=== PATIENT | female | born 1955 | race Caucasian/White ===

== ENCOUNTER 2018-10-28 05:21 | Day surgery (SDC) | payer BC ==
[2018-10-28] MEDS ORDERED: fentaNYL 100 MCG/2 ML SDV IV ONE ×3 (05:22→06:39)
[2018-10-28] MEDS ORDERED: Midazolam 1 MG/ML 2 ML SDV IV ONE ×5 (05:22→06:47)
[2018-10-28] MEDS ORDERED: Dextrose 5%-0.45% NaCl 1,000 ML IV SCH (06:00)
[2018-10-28] MEDS ORDERED: Midazolam 1 MG/ML 2 ML SDV ONE (06:16)
[2018-10-28] MEDS ORDERED: fentaNYL 100 MCG/2 ML SDV ONE (06:17)
--- NOTE | 2018-10-28 11:17 | OR ---
DATE: 10/28/2018 PROCEDURE PERFORMED: Total colonoscopy. INSTRUMENT USED: PCF-H190DL Olympus video colonoscope. PREMEDICATIONS: Fentanyl 100 mcg intravenous, Versed 3 mg intravenous. Nasal O2 cannula. The procedure was done under pulse oximetry, BP recording, and cardiac catheterization technologist. INDICATION: Screening colonoscopic examination is done for detection of any polypoid lesions and removal, endoscopic hemostasis therapy if needed. DESCRIPTION OF PROCEDURE: Initial rectal exam was unremarkable. Rigid anoscopy was normal. The colonoscope was passed with ease up to the ileocecal area. Photographs were taken of the normal-appearing cecum, identified by double- bulged ileocecal folds. No bleeding was noted from any of the visualized areas at the commencement of the examination. Bowel preparation was found to be adequate, Cambria scale 3. No stricture. No vascular ectasia. No large isolated ulcerations seen. No evidence of diffuse inflammatory bowel disease in the form of friability, contact bleeding, or ulcerations. In the proximal ascending colon, a 3-mm sized benign-appearing polyp was noted, photograph was taken, cold snare polypectomy was done, the tissue was retrieved and sent for histopathology. Probing the proximal sides of folds and flexures using adequate distention and clearing up the stool material, withdrawal of the scope was made, cecum to rectum, time over 6 minutes. No bleeding was noted from any of the visualized areas at the completion of examination. IMPRESSION: Diminutive ascending colon polyp. The patient tolerated the procedure well. [facility] /[id number]
== END 2018-10-28 09:03 | disposition home or self-care (01) ==
LOC: DL.ENDO 05:21
PROVIDERS: ATTEND Internal Medicine Gastroenterology
DX: Z12.11 Encounter for screening for malignant neoplasm of colon (principal); D12.2 Benign neoplasm of ascending colon; I10 Essential (primary) hypertension; E78.00 Pure hypercholesterolemia, unspecified; E66.09 Other obesity due to excess calories; Z68.35 Body mass index [BMI] 35.0-35.9, adult; Z88.8 Allergy status to other drugs, medicaments and biological substances; Z80.0 Family history of malignant neoplasm of digestive organs
CPT/HCPCS: 45385; J2250; J3010; J7042

== ENCOUNTER 2019-03-17 21:40 | Emergency (ER) | payer BC ==
[2019-03-17 22:27] LABS: ANION GAP 14.9
--- NOTE | 2019-03-17 22:27 | EDM.PDOC ---
ED HPI GENERAL MEDICAL PROBLEM - General Chief Complaint: General Stated Complaint: NAUSEA/SWEATING/CHILLS Time Seen by Provider: 03/17/19 22:10 Source of Information: Reports: Patient History Limitations: Reports: No Limitations - History of Present Illness INITIAL COMMENTS - FREE TEXT/NARRATIVE: This 63 yo female patient reports to the ED due to not feeling well. The patient reports she has had nausea, 2 episodes of vomiting and intermittent episodes of heart palpitations today. The patient also reports she has had some increased pain in her right posterior neck. The patient reports she was recently released from [facility] in [place] (discharged on Wednesday). During the visit in [place], the patient reports she was diagnosed with CHF. The reports she has a history of atrial fibrillation (diagnosed within the past month). The patient reports she also feels like her abdomen is bloated since she vomited today. The patient reports she has been taking her regular medications as prescribed. The patient reports she has not taken any Tylenol for her neck pain. Onset: Today Duration: Intermittent Location: Reports: Neck, Chest, Generalized Quality: Reports: Other Severity: Moderate Improves with: Reports: None Worsens with: Reports: None Context: Reports: Other Associated Symptoms: Reports: No Other Symptoms - Related Data Allergies Allergy/AdvReac Type Severity Reaction Status Date / Time oxaprozin [From Daypro] Allergy Cannot Verified 03/17/19 21:45 Remember Home Meds: Home Meds Acetaminophen [Tylenol Arthritis Pain] 650 mg PO Q8H PRN 03/17/19 [History] Acyclovir 200 mg PO 5XDAY 03/17/19 [History] Apixaban [Eliquis] 5 mg PO DAILY 03/17/19 [History] Cefpodoxime [Vantin] 200 mg PO BID 03/17/19 [History] Lisinopril 5 mg PO DAILY 03/17/19 [History] Metoprolol Tartrate 50 mg PO BID 03/17/19 [History] Simvastatin 10 mg PO BEDTIME 03/17/19 [History] Sodium Bicarbonate/Sodium Cit [[place] Heartburn Tab Eff] 1 each PO BID 09/30 [History] Past Medical History HEENT History: Reports: Impaired Vision, Macular Degeneration Cardiovascular History: Reports: Afib, Heart Failure, High Cholesterol, Hypertension, [place] Respiratory History: Reports: None Gastrointestinal History: Reports: None Genitourinary History: Reports: None 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: , Spontaneous Musculoskeletal History: Reports: Fracture, Osteoarthritis Other Musculoskeletal History: RIGHT ankle fx Neurological History: Reports: None Psychiatric History: Reports: None Endocrine/Metabolic History: Reports: Obesity/BMI 30+ Hematologic History: Reports: None Immunologic History: Reports: None Oncologic (Cancer) History: Reports: None Dermatologic History: Reports: None - Infectious Disease History Infectious Disease History: Reports: Mumps - Past Surgical History Head Surgeries/Procedures: Reports: None HEENT Surgical History: Reports: None Cardiovascular Surgical History: Reports: None Respiratory Surgical History: Reports: None GI Surgical History: Reports: Colonoscopy Female Surgical History: Reports: Hysterectomy Endocrine Surgical History: Reports: None Neurological Surgical History: Reports: None Musculoskeletal Surgical History: Reports: Carpal Tunnel, ORIF Other Musculoskeletal Surgeries/Procedures:: CARPAL TUNNEL BILAT. ORIF OF ANKLE W/ HARDWARE Oncologic Surgical History: Reports: None Dermatological Surgical History: Reports: None Social & Family History - Family History Family Medical History: Noncontributory - Tobacco Use Smoking Status *Q: Never Smoker Second Hand Smoke Exposure: No - Caffeine Use Caffeine Use: Reports: None - Recreational Drug Use Recreational Drug Use: No - Living Situation & Occupation Living situation: Reports: , with Spouse ED ROS GENERAL - Review of Systems Review Of Systems: ROS reveals no pertinent complaints other than HPI. ED EXAM, GENERAL - Physical Exam Exam: See Below Exam Limited By: No Limitations General Appearance: Alert, WD/WN, Anxious, Mild Distress, Obese Eye Exam: Bilateral Eye: EOMI, Normal Inspection, PERRL Ears: Normal External Exam, Normal Canal, Hearing Grossly Normal, Normal TMs Nose: Normal Inspection, Normal Mucosa, No Blood Throat/Mouth: Normal Inspection, Normal Lips, Normal Teeth, Normal Gums, Normal Oropharynx, Normal Voice, No Airway Compromise Head: Atraumatic, Normocephalic Neck: Normal Inspection, Supple, Non-Tender, Full Range of Motion Respiratory/Chest: No Respiratory Distress, Lungs Clear, Normal Breath Sounds, No Accessory Muscle Use, Chest Non-Tender Cardiovascular: No Gallop, No JVD, No Murmur, No Rub, Irregularly Irregular GI/Abdominal: Normal Bowel Sounds, Soft, Non-Tender, No Organomegaly, No Distention, No Abnormal Bruit, No Mass, Other (obese) (Female) Exam: Deferred Rectal (Female) Exam: Deferred Back Exam: Normal Inspection, Full Range of Motion, NT Extremities: Normal Range of Motion, Non-Tender, Normal Capillary Refill, Pedal Edema (2+ bilateral lower extremities) Neurological: Alert, Oriented, CN II-XII Intact, Normal Cognition, Normal Gait, Normal Reflexes, No Motor/Sensory Deficits Psychiatric: Anxious Skin Exam: Warm, Dry, Intact, Normal Color, No Rash Lymphatic: No Adenopathy Course - Vital Signs Last Recorded V/S: Last Vital Signs Temp 37.1 C 03/17/19 21:45 Pulse 106 H 03/17/19 21:45 Resp 20 03/17/19 21:45 BP 168/115 H 03/17/19 21:45 Pulse Ox 96 03/17/19 21:45 - Orders/Labs/Meds Orders: Active Orders 24 hr Category Date Time Status EKG Documentation Completion [RC] URGENT Care 03/17/19 21:58 Active CULTURE BLOOD [BC] Stat Lab 03/17/19 22:00 Results UA RFX TITO AND CULT IF INDIC [URIN] Urgent Lab 03/17/19 21:58 Ordered Labs: Laboratory Tests 03/17/19 03/17/19 03/17/19 Range/Units 22:00 22:00 22:00 WBC 8.0 (5.0-10.0) 10^3/uL RBC 3.97 L (4.2-5.4) 10^6/uL Hgb 11.8 L D (12.0-16.0) g/dL Hct 35.9 L (37.0-47.0) % MCV 90.4 (80-100) fL MCH 29.7 (27.0-34.0) pg MCHC 32.9 L (33.0-35.0) g/dL Plt Count 191 (150-450) 10^3/uL Neut % (Auto) 79.4 H (42.2-75.2) % Lymph % (Auto) 12.5 L (20.5-50.1) % [place] % (Auto) 6.9 (2-8) % Eos % (Auto) 1.1 (1.0-3.0) % Baso % (Auto) 0.1 (0.0-1.0) % Sodium (135-145) mmol/L Potassium (3.6-5.0) mmol/L Chloride (101-111) mmol/L Carbon Dioxide (21.0-31.0) mmol/L Anion Gap BUN (7-18) mg/dL Creatinine (0.6-1.3) mg/dL Est Cr Clr Drug Dosing mL/min Estimated GFR (MDRD) BUN/Creatinine Ratio Glucose (74-105) mg/dL Lactic Acid 1.0 (0.5-2.2) mmol/L Calcium (8.4-10.2) mg/dl Total Bilirubin (0.2-1.0) mg/dL AST (10-42) IU/L ALT (10-60) IU/L Alkaline Phosphatase (42-121) IU/L Troponin I (0.00-0.02) ng/ml B-Natriuretic Peptide 979 H (0-100) pg/ml Total Protein (6.7-8.2) g/dl Albumin (3.2-5.5) g/dl Globulin Albumin/Globulin Ratio 03/17/19 03/17/19 Range/Units 22:00 22:00 WBC (5.0-10.0) 10^3/uL RBC (4.2-5.4) 10^6/uL Hgb (12.0-16.0) g/dL Hct (37.0-47.0) % MCV (80-100) fL MCH (27.0-34.0) pg MCHC (33.0-35.0) g/dL Plt Count (150-450) 10^3/uL Neut % (Auto) (42.2-75.2) % Lymph % (Auto) (20.5-50.1) % [place] % (Auto) (2-8) % Eos % (Auto) (1.0-3.0) % Baso % (Auto) (0.0-1.0) % Sodium 140 (135-145) mmol/L Potassium 3.9 (3.6-5.0) mmol/L Chloride 105 (101-111) mmol/L Carbon Dioxide 24.0 (21.0-31.0) mmol/L Anion Gap 14.9 BUN 16 (7-18) mg/dL Creatinine 1.1 (0.6-1.3) mg/dL Est Cr Clr Drug Dosing 49.64 mL/min Estimated GFR (MDRD) 50 BUN/Creatinine Ratio 14.54 Glucose 131 H (74-105) mg/dL Lactic Acid (0.5-2.2) mmol/L Calcium 8.5 (8.4-10.2) mg/dl Total Bilirubin 0.7 (0.2-1.0) mg/dL AST 24 (10-42) IU/L ALT 29 (10-60) IU/L Alkaline Phosphatase 76 (42-121) IU/L Troponin I 0.06 H* (0.00-0.02) ng/ml B-Natriuretic Peptide (0-100) pg/ml Total Protein 6.7 (6.7-8.2) g/dl Albumin 3.4 (3.2-5.5) g/dl Globulin 3.3 Albumin/Globulin Ratio 1.03 Meds: Medications Discontinued Medications Generic Name Dose Route Start Last Admin Trade Name Freq PRN Reason Stop Dose Admin Furosemide 60 mg 03/17/19 23:12 Lasix IVPUSH 03/17/19 23:13 NOW ONE - Radiology Interpretation Free Text/Narrative:: PROCEDURE INFORMATION: Exam: XR Chest, 1 View Exam date and time: 03/17/2019 10:38 PM Clinical history: 63 years old, female; Other: Heart palpatations TECHNIQUE: Imaging protocol: XR of the chest Views: 1 view. COMPARISON: CR Chest 1V Frontal 02/27/2019 12:54 PM FINDINGS: Lungs: There is an somatostatin subpulmonic vasculature some increased bronchovascular markings present, findings that could represent mild pulmonary edema. Pleural space: Unremarkable. No pleural effusion. No pneumothorax. Heart/Mediastinum: Unremarkable. No cardiomegaly. Bones/joints: Unremarkable. IMPRESSION: Mildly increased bronchovascular markings and indistinctness of the bony vasculature could represent mild pulmonary edema. Thank you for allowing us to participate in the care of your patient. Dictated and Authenticated by: Dm Darnell MD - Re-Assessments/Exams Free Text/Narrative Re-Assessment/Exam: 03/17/19 23:[address]. Liz advised to give the patient an IV dose of lasix (60 mg) and discharge the patient with a script for lasix (40 mg) to take 1 by mouth daily with a follow-up on Wednesday as scheduled. Departure - Departure Time of Disposition: 23:15 Disposition: Home, Self-Care 01 Condition: Fair Clinical Impression: CHF (congestive heart failure) Qualifiers: Heart failure type: unspecified Heart failure chronicity: acute on chronic Qualified Code(s): I50.9 - Heart failure, unspecified - Discharge Information *PRESCRIPTION DRUG MONITORING PROGRAM REVIEWED*: Not Applicable *COPY OF PRESCRIPTION DRUG MONITORING REPORT IN PATIENT AMY: Not Applicable Forms: ED Department Discharge Care Plan Goals: The patient and family were advised of the examination, EKG, lab and x-ray results during the visit. The patient was given an IV dose of lasix while in the ED and discharged with a script for Furosemide (40 mg) #30 to take 1 by mouth daily. The patient was encouraged to follow-up with her primary care facility on Wednesday as scheduled. If the patient has any additional symptoms or concerns, the patient should either return to the emergency department or visit her primary care facility. - My Orders Last 24 Hours: My Active Orders 03/17/19 21:58 EKG Documentation Completion [RC] URGENT UA RFX TITO AND CULT IF INDIC [URIN] Urgent 03/17/19 22:00 CULTURE BLOOD [BC] Stat - Assessment/Plan Last 24 Hours: My Active Orders 03/17/19 21:58 EKG Documentation Completion [RC] URGENT UA RFX TITO AND CULT IF INDIC [URIN] Urgent 03/17/19 22:00 CULTURE BLOOD [BC] Stat
[2019-03-17] MEDS ORDERED: Furosemide 40 MG/4 ML VIAL IVPUSH ONE (23:12)
== END 2019-03-17 23:35 | disposition home or self-care (01) ==
LOC: DL.ED 21:40
DX: I11.0 Hypertensive heart disease with heart failure (principal); I50.9 Heart failure, unspecified; E78.00 Pure hypercholesterolemia, unspecified; Z88.8 Allergy status to other drugs, medicaments and biological substances; Z79.899 Other long term (current) drug therapy
CPT/HCPCS: 36415; 71045; 80053; 83605; 83880; 84484; 85025; 87040; 93005; 96374; 99285; J1940

== ENCOUNTER 2019-03-20 13:31 | Emergency (ER) | payer BC ==
[2019-03-20] MEDS ORDERED: Sodium Chloride 0.9% 10 ML Syringe FLUSH PRN (13:50)
--- NOTE | 2019-03-20 13:54 | EDM.PDOC ---
ED HPI GENERAL MEDICAL PROBLEM - General Chief Complaint: Cardiovascular Problem Stated Complaint: SENT FROM CLINIC Time Seen by Provider: 03/20/19 13:53 Source of Information: Reports: Patient, Old Records, Provider (Ave Hennessy NP ), RN, RN Notes Reviewed History Limitations: Reports: No Limitations - History of Present Illness INITIAL COMMENTS - FREE TEXT/NARRATIVE: Pt sent from clinic with report of A-fib with RVR, rate in 130's, shortness of breath, edema, fatigue, and a low grade fever. Pt has recent Dx of A-fib and CHF with Troponin elevated 0.09, on 02/27/19 at which time she was transferred to [facility] in [place]. Pt was d/c'd from [facility] on Metoprolol 50mg BID and Eliquis 5mg BID, and states she had an ECHO. Pt was transferred to [facility] in on 03/13/19 with A-fib RVR and CHF, with her Troponin still elevated at 0.7. Pt denies chest pain or cough. Onset: Gradual, Unknown/Unsure Duration: Constant, Getting Worse Location: Reports: Chest, Generalized Quality: Reports: Pressure Severity: Moderate Improves with: Reports: None Worsens with: Reports: Other (Exertion) Associated Symptoms: Reports: No Other Symptoms - Related Data Allergies Allergy/AdvReac Type Severity Reaction Status Date / Time No Known Allergies Allergy Verified 03/20/19 13:57 Home Meds: Home Meds Acetaminophen [Tylenol Arthritis Pain] 650 mg PO Q8H PRN 03/17/19 [History] Acyclovir 200 mg PO 5XDAY 03/17/19 [History] Apixaban [Eliquis] 5 mg PO BID 03/17/19 [History] Lisinopril 5 mg PO DAILY 03/17/19 [History] Metoprolol Tartrate 50 mg PO BID 03/17/19 [History] Simvastatin 10 mg PO BEDTIME 03/17/19 [History] Sodium Bicarbonate/Sodium Cit [Allie-[place] Heartburn Tab Eff] 1 each PO BID 09/30 [History] Calcium Carbonate [Tums] 200 mg PO PRN 03/20/19 [History] Furosemide 40 mg PO 03/20/19 [History] Past Medical History HEENT History: Reports: Impaired Vision, Macular Degeneration Cardiovascular History: Reports: Afib, CAD, Heart Failure, High Cholesterol, Hypertension, [place] Respiratory History: Reports: None Gastrointestinal History: Reports: None Genitourinary History: Reports: None 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: , Spontaneous Musculoskeletal History: Reports: Fracture, Osteoarthritis Other Musculoskeletal History: RIGHT ankle fx Neurological History: Reports: None Psychiatric History: Reports: None Endocrine/Metabolic History: Reports: Obesity/BMI 30+ Hematologic History: Reports: None Immunologic History: Reports: None Oncologic (Cancer) History: Reports: None Dermatologic History: Reports: None - Infectious Disease History Infectious Disease History: Reports: Mumps - Past Surgical History Head Surgeries/Procedures: Reports: None HEENT Surgical History: Reports: None Cardiovascular Surgical History: Reports: None Respiratory Surgical History: Reports: None GI Surgical History: Reports: Colonoscopy Female Surgical History: Reports: Hysterectomy Endocrine Surgical History: Reports: None Neurological Surgical History: Reports: None Musculoskeletal Surgical History: Reports: Carpal Tunnel, ORIF Other Musculoskeletal Surgeries/Procedures:: CARPAL TUNNEL BILAT. ORIF OF ANKLE W/ HARDWARE Oncologic Surgical History: Reports: None Dermatological Surgical History: Reports: None Social & Family History - Family History Family Medical History: Noncontributory - Caffeine Use Caffeine Use: Reports: None - Living Situation & Occupation Living situation: Reports: , with Spouse ED ROS GENERAL - Review of Systems Review Of Systems: ROS reveals no pertinent complaints other than HPI. ED EXAM, GENERAL - Physical Exam Exam: See Below Exam Limited By: No Limitations General Appearance: Alert, No Apparent Distress, Obese Eye Exam: Bilateral Eye: Normal Inspection Nose: Normal Inspection, Normal Mucosa, No Blood Throat/Mouth: Normal Inspection, Normal Lips, Normal Teeth, Normal Gums, Normal Oropharynx, Normal Voice, No Airway Compromise Head: Atraumatic, Normocephalic Neck: Normal Inspection, Supple, Non-Tender, Full Range of Motion Respiratory/Chest: No Respiratory Distress, No Accessory Muscle Use, Chest Non- Tender, Decreased Breath Sounds, Rales Cardiovascular: Tachycardia, Irregularly Irregular GI/Abdominal: Normal Bowel Sounds, Soft, Non-Tender, Other (Benign obese abdomen ) (Female) Exam: Deferred Rectal (Female) Exam: Deferred Back Exam: Normal Inspection Extremities: Normal Range of Motion, Non-Tender, Normal Capillary Refill, Pedal Edema (to knees B/L). No: Joint Swelling, Eduarda's Sign Neurological: Alert, Oriented, CN II-XII Intact, Normal Cognition, No Motor/ Sensory Deficits Psychiatric: Normal Mood Skin Exam: Warm, Dry, Intact, Normal Color, No Rash EKG INTERPRETATION EKG Date: 03/20/19 Time: 14:01 Rhythm: A-Fib (V-rate 89-135.) Rate (Beats/Min): 108 [place]: Normal P-Wave: Present QRS: Normal ST-T: Other (borderline T abnormalities, inferior leads.) QT: Normal Comparison: No Change Course - Vital Signs Last Recorded V/S: Last Vital Signs Temp 100.8 F H 03/20/19 13:48 Pulse 123 H 03/20/19 14:47 Resp 16 03/20/19 13:48 BP 129/99 H 03/20/19 14:47 Pulse Ox 96 03/20/19 13:48 - Orders/Labs/Meds Orders: Active Orders 24 hr Category Date Time Status EKG 12 Lead [EKG Documentation Completion] [] STAT Care 03/20/19 13:50 Active Peripheral IV Care [] . DIRECTED Care 03/20/19 13:52 Active CULTURE BLOOD [BC] Stat Lab 03/20/19 14:05 Received CULTURE BLOOD [BC] Stat Lab 03/20/19 14:10 Received Sodium Chloride 0.9% [Saline Flush] Med 03/20/19 13:50 Active 10 ml FLUSH ASDIRECTED PRN Blood Culture x2 Reflex Set [OM.PC] Stat Oth 03/20/19 13:51 Ordered Peripheral IV Insertion Adult [OM.PC] Stat Oth 03/20/19 13:50 Ordered Medication Orders Sodium Chloride (Saline Flush) 10 ml FLUSH ASDIRECTED PRN PRN Reason: Keep Vein Open Last Admin: 03/20/19 14:22 Dose: 10 ml Labs: Laboratory Tests 03/20/19 03/20/19 03/20/19 Range/Units 14:05 14:05 14:05 WBC 7.9 (5.0-10.0) 10^3/uL RBC 4.32 (4.2-5.4) 10^6/uL Hgb 12.8 (12.0-16.0) g/dL Hct 39.5 (37.0-47.0) % MCV 91.4 (80-100) fL MCH 29.6 (27.0-34.0) pg MCHC 32.4 L (33.0-35.0) g/dL Plt Count 219 (150-450) 10^3/uL Neut % (Auto) 82.5 H (42.2-75.2) % Lymph % (Auto) 9.3 L (20.5-50.1) % [place] % (Auto) 7.2 (2-8) % Eos % (Auto) 0.9 L (1.0-3.0) % Baso % (Auto) 0.1 (0.0-1.0) % Sodium 134 L (135-145) mmol/L Potassium 3.7 (3.6-5.0) mmol/L Chloride 95 L (101-111) mmol/L Carbon Dioxide 24.0 (21.0-31.0) mmol/L Anion Gap 18.7 BUN 16 (7-18) mg/dL Creatinine 1.2 (0.6-1.3) mg/dL Est Cr Clr Drug Dosing 45.50 mL/min Estimated GFR (MDRD) 46 BUN/Creatinine Ratio 13.33 Glucose 163 H (74-105) mg/dL Lactic Acid 2.6 H (0.5-2.2) mmol/L Calcium 8.4 (8.4-10.2) mg/dl Total Bilirubin 0.6 (0.2-1.0) mg/dL AST 26 (10-42) IU/L ALT 35 (10-60) IU/L Alkaline Phosphatase 92 (42-121) IU/L Creatine Kinase (26-174) IU/L Creatine Kinase Index (0-2.4) % CK-MB (CK-2) (0.4-4.7) ng/mL Troponin I 0.07 H* (0.00-0.02) ng/ml B-Natriuretic Peptide 633 H (0-100) pg/ml Total Protein 7.2 (6.7-8.2) g/dl Albumin 3.5 (3.2-5.5) g/dl Globulin 3.7 Albumin/Globulin Ratio 0.95 Urine Color (YELLOW) Urine Appearance (CLEAR) Urine pH (5.0-9.0) Ur Specific [place] (1.005-1.030) Urine Protein (NEGATIVE) Urine Glucose (UA) (NEGATIVE) Urine Ketones (NEGATIVE) Urine Occult Blood (NEGATIVE) Urine Nitrite (NEGATIVE) Urine Bilirubin (NEGATIVE) Urine Urobilinogen (0.2-1.0) mg/dL Ur Leukocyte Esterase (NEGATIVE) Urine RBC /HPF Urine WBC (0-5/HPF) /HPF Ur Epithelial Cells (NOT SEEN) /HPF Urine Bacteria (0-FEW/HPF) /HPF Urine Mucus (NOT SEEN) /LPF 03/20/19 03/20/19 Range/Units 14:10 14:23 WBC (5.0-10.0) 10^3/uL RBC (4.2-5.4) 10^6/uL Hgb (12.0-16.0) g/dL Hct (37.0-47.0) % MCV (80-100) fL MCH (27.0-34.0) pg MCHC (33.0-35.0) g/dL Plt Count (150-450) 10^3/uL Neut % (Auto) (42.2-75.2) % Lymph % (Auto) (20.5-50.1) % [place] % (Auto) (2-8) % Eos % (Auto) (1.0-3.0) % Baso % (Auto) (0.0-1.0) % Sodium (135-145) mmol/L Potassium (3.6-5.0) mmol/L Chloride (101-111) mmol/L Carbon Dioxide (21.0-31.0) mmol/L Anion Gap BUN (7-18) mg/dL Creatinine (0.6-1.3) mg/dL Est Cr Clr Drug Dosing mL/min Estimated GFR (MDRD) BUN/Creatinine Ratio Glucose (74-105) mg/dL Lactic Acid (0.5-2.2) mmol/L Calcium (8.4-10.2) mg/dl Total Bilirubin (0.2-1.0) mg/dL AST (10-42) IU/L ALT (10-60) IU/L Alkaline Phosphatase (42-121) IU/L Creatine Kinase 35 (26-174) IU/L Creatine Kinase Index 11.4 H (0-2.4) % CK-MB (CK-2) 4.00 (0.4-4.7) ng/mL Troponin I (0.00-0.02) ng/ml B-Natriuretic Peptide (0-100) pg/ml Total Protein (6.7-8.2) g/dl Albumin (3.2-5.5) g/dl Globulin Albumin/Globulin Ratio Urine Color Yellow (YELLOW) Urine Appearance Clear (CLEAR) Urine pH 6.5 (5.0-9.0) Ur Specific [place] >= 1.030 (1.005-1.030) Urine Protein Negative (NEGATIVE) Urine Glucose (UA) Negative (NEGATIVE) Urine Ketones Negative (NEGATIVE) Urine Occult Blood Trace-intact H (NEGATIVE) Urine Nitrite Negative (NEGATIVE) Urine Bilirubin Negative (NEGATIVE) Urine Urobilinogen 0.2 (0.2-1.0) mg/dL Ur Leukocyte Esterase Negative (NEGATIVE) Urine RBC 0-5 /HPF Urine WBC 0-5 (0-5/HPF) /HPF Ur Epithelial Cells Few (NOT SEEN) /HPF Urine Bacteria Few (0-FEW/HPF) /HPF Urine Mucus Few H (NOT SEEN) /LPF Meds: Medications Generic Name Dose Route Start Last Admin Trade Name Freq PRN Reason Stop Dose Admin Sodium Chloride 10 ml 03/20/19 13:50 03/20/19 14:22 Saline Flush FLUSH 10 ml ASDIRECTED PRN Administration Keep Vein Open Discontinued Medications Generic Name Dose Route Start Last Admin Trade Name Freq PRN Reason Stop Dose Admin Furosemide 40 mg 03/20/19 15:46 03/20/19 16:10 Lasix IVPUSH 03/20/19 15:47 40 mg NOW ONE Administration Metoprolol Tartrate 5 mg 03/20/19 13:59 03/20/19 14:22 Lopressor IVPUSH 03/20/19 14:00 5 mg ONETIME ONE Administration Metoprolol Tartrate 5 mg 03/20/19 14:31 03/20/19 14:47 Lopressor IVPUSH 03/20/19 14:32 5 mg ONETIME ONE Administration - Radiology Interpretation Free Text/Narrative:: Chest x-ray: Chronic mild pulmonary venous congestion. See rad report. - Re-Assessments/Exams Free Text/Narrative Re-Assessment/Exam: 03/20/19 16:45 Pt refuses to be transferred to [facility] because she was unhappy with her past care there. Pt requests to be transferred to [facility]. Departure - Departure Time of Disposition: 16:46 Disposition: DC/Tfer to Acute Hospital 02 Reason for Transfer *Q: Primary PCI Indicated Condition: Serious Clinical Impression: Atrial fibrillation with rapid ventricular response, Elevated troponin CHF (congestive heart failure) Qualifiers: Heart failure type: unspecified Heart failure chronicity: acute on chronic Qualified Code(s): I50.9 - Heart failure, unspecified Forms: ED Department Discharge, Interfacility Transfer EMTALA - My Orders Last 24 Hours: My Active Orders 03/20/19 13:50 EKG 12 Lead [EKG Documentation Completion] [RC] STAT Sodium Chloride 0.9% [Saline Flush] 10 ml FLUSH ASDIRECTED PRN Peripheral IV Insertion Adult [OM.PC] Stat 03/20/19 13:51 Blood Culture x2 Reflex Set [OM.PC] Stat 03/20/19 13:52 Peripheral IV Care [RC] . DIRECTED 03/20/19 14:05 CULTURE BLOOD [BC] Stat 03/20/19 14:10 CULTURE BLOOD [BC] Stat - Assessment/Plan Last 24 Hours: My Active Orders 03/20/19 13:50 EKG 12 Lead [EKG Documentation Completion] [RC] STAT Sodium Chloride 0.9% [Saline Flush] 10 ml FLUSH ASDIRECTED PRN Peripheral IV Insertion Adult [OM.PC] Stat 03/20/19 13:51 Blood Culture x2 Reflex Set [OM.PC] Stat 03/20/19 13:52 Peripheral IV Care [RC] . DIRECTED 03/20/19 14:05 CULTURE BLOOD [BC] Stat 03/20/19 14:10 CULTURE BLOOD [BC] Stat
[2019-03-20] MEDS ORDERED: Metoprolol Tartrate 5 MG/5 ML SDV IVPUSH ONE ×2 (13:59→14:31)
--- NOTE | 2019-03-20 14:25 | CR ---
EXAMINATION: Chest 1V Frontal SEX: Female AGE: 63 years CLINICAL HISTORY: 63-year-old female with chest pain and fever. Hx CHF. Comparison films 17 March and 27 February. INTERPRETATION: Upright AP portable chest (external hall monitor leads) 1. Chronic cardiomegaly and mild pulmonary venous congestion/cephalization but no new signs of alveolar edema or dependent pleural fluid accumulation. 2. Linear platelike atelectasis left midlung. 3. No new lung mass, hilar lymphadenopathy or focal lobar pneumonia. 4. No pneumothorax or free subdiaphragmatic air. CONCLUSION: Chronic mild pulmonary venous congestion.
[2019-03-20 14:37] LABS: ANION GAP 18.7
[2019-03-20] MEDS ORDERED: Furosemide 40 MG/4 ML VIAL IVPUSH ONE (15:46)
== END 2019-03-20 18:07 ==
LOC: DL.ED 13:31
DX: I48.91 Unspecified atrial fibrillation (principal); I11.0 Hypertensive heart disease with heart failure; I50.9 Heart failure, unspecified; E78.00 Pure hypercholesterolemia, unspecified; I25.2 Old myocardial infarction; E66.9 Obesity, unspecified; Z79.899 Other long term (current) drug therapy; Z68.38 Body mass index [BMI] 38.0-38.9, adult
CPT/HCPCS: 36415; 71045; 80053; 81001; 82550; 82553; 83605; 83880; 84484; 85025; 87040; 87804; 93005; 96374; 96375; 99285; J1940; J3490

== ENCOUNTER 2023-03-30 16:34 | Inpatient (IN) | payer MEDICARE, OTHER ==
[2023-03-30] MEDS ORDERED: Sodium Chloride 0.9% 10 ML Syringe FLUSH PRN (16:40)
[2023-03-30 16:52] LABS: BASOPHILS PERCENT AUTO 0.2 % (0.0-1.0); EOSINOPHILS PERCENT AUTO 0.6 % (1.0-3.0); HEMATOCRIT 43.1 % (37.0-47.0); LYMPHOCYTES PERCENT AUTO 15.9 % (20.5-50.1); MEAN CORPUSCULAR HGB CONC 32.5 g/dL (33.0-35.0); MEAN CORPUSCULAR VOLUME 92.5 fL (80-100); MONOCYTES PERCENT AUTO 5.3 % (2-8); PLATELET COUNT,PLT 209 10^3/uL (150-450); RED BLOOD CELL COUNT 4.66 10^6/uL (4.2-5.4); WHITE BLOOD CELL COUNT,WBC 8.5 10^3/uL (5.0-10.0)
[2023-03-30 17:13] LABS: A/G RATIO 0.8; ALANINE AMINOTRANSFERASE,ALT 425 U/L (14-59); ALBUMIN 3.7 g/dL (3.4-5.0); ALKALINE PHOSPHATASE 331 U/L (46-116); ANION GAP 14.8 mEq/L (7-13); ASPARTATE AMNIOTRANSFERASE,AST 207 U/L (15-37); BILIRUBIN TOTAL 4.6 mg/dL (0.2-1.0); BLOOD UREA NITROGEN,BUN 19 mg/dL (7-18); BUN/CREATININE RATIO 18.8 (No establ ref range); CALCIUM 9.8 mg/dL (8.5-10.1); CARBON DIOXIDE,CO2 26 mmol/L (21-32); CHLORIDE,CL 103 mmol/L (98-107); CREATININE 1.01 mg/dL (0.55-1.02); EST CRCL DRUG DOSING (CG) 51.29 mL/min; GLUCOSE RANDOM 107 mg/dL (70-99); POTASSIUM,K 3.8 mmol/L (3.5-5.1); PROTEIN TOTAL,TP 8.6 g/dL (6.4-8.2); SODIUM,NA 140 mmol/L (136-145)
[2023-03-30] MEDS ORDERED: Promethazine 25 MG/ML SDV IM ONE ×2 (17:33→17:34)
[2023-03-30 17:34] LABS: ESTIMATED GFR 61 mL/min (>=60)
[2023-03-30] MEDS ORDERED: Iopamidol 612 MG/ML 100 ML Bottle IVPUSH ONE (17:44)
[2023-03-30 17:50] LABS: LIPASE > 250 U/L (16-77)
[2023-03-30] MEDS ORDERED: fentaNYL 100 MCG/2 ML SDV IVPUSH ONE (17:54)
[2023-03-30] MEDS ORDERED: Ondansetron 4 MG/2 ML SDV IVPUSH ONE (18:01)
[2023-03-30] MEDS ORDERED: Ondansetron 4 MG/2 ML SDV ONE (18:02)
[2023-03-30] MEDS ORDERED: Sodium Chloride 0.9% 1,000 ML IV ONE (18:36)
[2023-03-30 18:38] LABS: APPEARANCE,URINE CLEAR (CLEAR); BILIRUBIN,URINE LARGE (NEGATIVE); COLOR,URINE DARK YELLOW (YELLOW); GLUCOSE,URINE NEGATIVE (NEGATIVE); KETONES,URINE NEGATIVE (NEGATIVE); LEUKOCYTE ESTERASE,URINE SMALL (NEGATIVE); NITRITE,URINE NEGATIVE (NEGATIVE); OCCULT BLOOD,URINE TRACE-INTACT (NEGATIVE); PH,URINE 5.5 (5.0-9.0); PROTEIN,URINE NEGATIVE (NEGATIVE)
[2023-03-30 18:48] LABS: AMORPHOUS SEDIMENT,URINE MODERATE /HPF (NOT SEEN); BACTERIA,URINE MODERATE /HPF (0-FEW/HPF); EPITHELIAL CELLS,URINE MODERATE /HPF (NOT SEEN); MUCUS,URINE MODERATE /LPF (NOT SEEN); RBC,URINE 0-5 /HPF (0-5)
[2023-03-30] MEDS ORDERED: Meropenem 1 GM SDV IVPUSH ONE (20:38)
[2023-03-30] MEDS ORDERED: Pantoprazole 40 MG Vial IVPUSH ONE (21:59)
[2023-03-30] MEDS ORDERED: HYDROmorphone 2 MG/ML Syringe IVPUSH PRN (21:59)
[2023-03-30] MEDS ORDERED: Temazepam 15 MG Cap PO PRN (21:59)
[2023-03-30] MEDS ORDERED: Ibuprofen 600 MG Tab PO PRN (21:59)
[2023-03-30] MEDS ORDERED: Albuterol/Ipratropium 3.0-0.5 MG/3 ML Neb Soln NEB PRN (21:59)
[2023-03-30] MEDS ORDERED: Ondansetron 4 MG Tab.DIS PO PRN (21:59)
[2023-03-30] MEDS ORDERED: Naloxone 2 MG/2 ML Syringe IVPUSH PRN (22:07)
[2023-03-30] MEDS ORDERED: fentaNYL 100 MCG/2 ML SDV IVPUSH PRN (22:07)
[2023-03-30] MEDS ORDERED: Enoxaparin 40 MG/0.4 ML Syringe SUBCUT ONE (22:08)
[2023-03-30] MEDS ORDERED: Acetaminophen/Butalbital/Caffeine 325-50-40 MG Tab PO PRN (22:34)
[2023-03-30] MEDS ORDERED: Metoprolol Tartrate 5 MG/5 ML SDV IVPUSH PRN (22:34)
[2023-03-30] MEDS ORDERED: hydrALAZINE 20 MG/ML SDV IVPUSH PRN (22:34)
[2023-03-30] MEDS ORDERED: Dextrose 5%-0.9% NaCl 1,000 ML IV SCH (23:00)
[2023-03-30] MEDS: Piperacillin/Tazobactam 4.5 GM in Sodium Chloride 0.9% 100 ML IV SCH (23:49)
[2023-03-31] MEDS: Piperacillin/Tazobactam 4.5 GM in Sodium Chloride 0.9% 100 ML IV SCH ×2 (05:44→12:12)
[2023-03-31 06:03] LABS: BASOPHILS PERCENT AUTO 0.3 % (0.0-1.0); EOSINOPHILS PERCENT AUTO 0.9 % (1.0-3.0); HEMATOCRIT 38.4 % (37.0-47.0); HEMOGLOBIN 12.4 g/dL (12.0-16.0); LYMPHOCYTES PERCENT AUTO 27.5 % (20.5-50.1); MEAN CORPUSCULAR HEMOGLOBIN 30.2 pg (27.0-34.0); MEAN CORPUSCULAR HGB CONC 32.3 g/dL (33.0-35.0); MEAN CORPUSCULAR VOLUME 93.4 fL (80-100); MONOCYTES PERCENT AUTO 7.2 % (2-8); NEUTROPHILS PERCENT AUTO 64.1 % (42.2-75.2); PLATELET COUNT,PLT 184 10^3/uL (150-450); RED BLOOD CELL COUNT 4.11 10^6/uL (4.2-5.4); WHITE BLOOD CELL COUNT,WBC 5.8 10^3/uL (5.0-10.0)
[2023-03-31 06:30] LABS: ALBUMIN 2.9 g/dL (3.4-5.0); ANION GAP 9.3 mEq/L (7-13); BILIRUBIN TOTAL 2.8 mg/dL (0.2-1.0); C-REACTIVE PROTEIN 2.54 ng/dL (<=0.30); CALCIUM 8.8 mg/dL (8.5-10.1); CREATININE 1.13 mg/dL (0.55-1.02); EST CRCL DRUG DOSING (CG) 45.84 mL/min; MAGNESIUM 2.1 mg/dL (1.8-2.4); POTASSIUM,K 4.3 mmol/L (3.5-5.1)
[2023-03-31 06:31] LABS: A/G RATIO 0.71
[2023-03-31 07:33] LABS: CHOLESTEROL HDL 49 mg/dL (40-59); CHOLESTEROL LDL CALCULATED 54 mg/dL (0-100); CHOLESTEROL TOTAL 117 mg/dL (0-199); TRIGLYCERIDES 70 mg/dL (0-149)
[2023-03-31] MEDS ORDERED: Digoxin 125 MCG Tab PO SCH (09:00)
[2023-03-31] MEDS ORDERED: Pantoprazole 40 MG Vial IVPUSH SCH (09:00)
[2023-03-31] MEDS ORDERED: Saccharomyces Boulardii (Probiotic) 250 MG Cap PO SCH (09:00)
[2023-03-31] MEDS ORDERED: Lisinopril 5 MG Tab PO SCH (09:00)
[2023-03-31] MEDS ORDERED: Metoprolol Succinate 25 MG Tab.ER PO SCH (09:00)
[2023-03-31] MEDS ORDERED: amLODIPine 5 MG Tab PO SCH (09:00)
[2023-03-31] MEDS: Furosemide 40 MG Tab PO SCH ×2 (09:16→14:13)
[2023-03-31 16:04] VITALS: BP 127/87; PULSE 64
[2023-04-01] MEDS ORDERED: Enoxaparin 40 MG/0.4 ML Syringe SUBCUT SCH (09:00)
== END 2023-03-31 13:30 | DRG 444 ==
LOC: DL.ED 16:34 → DL.MS 21:34 → UNDOADMIN 21:34 → DL.MS 21:55
PROVIDERS: ADMIT Internal Medicine; ATTEND Internal Medicine
DX: K80.00 Calculus of gallbladder with acute cholecystitis without obstruction (principal); I48.91 Unspecified atrial fibrillation; K85.10 Biliary acute pancreatitis without necrosis or infection; N39.0 Urinary tract infection, site not specified; I48.20 Chronic atrial fibrillation, unspecified; E66.9 Obesity, unspecified; H35.30 Unspecified macular degeneration; I50.9 Heart failure, unspecified; M19.90 Unspecified osteoarthritis, unspecified site; I11.0 Hypertensive heart disease with heart failure; E78.00 Pure hypercholesterolemia, unspecified; I25.10 Atherosclerotic heart disease of native coronary artery without angina pectoris; Z90.710 Acquired absence of both cervix and uterus; I25.2 Old myocardial infarction; Z79.01 Long term (current) use of anticoagulants; Z98.890 Other specified postprocedural states; Z68.37 Body mass index [BMI] 37.0-37.9, adult; Z79.899 Other long term (current) drug therapy
CPT/HCPCS: 36415; 74177; 76700; 80053; 80061; 81001; 83605; 83690; 83735; 84484; 85025; 86140; 87086; 93005; 93010; 96372; 96374; 96375; 99223; 99238; 99284; 99285-25; A9270-GY; C9113; J2185; J2405; J2543; J2550; J3010; J3490; J7030; J7042; Q9967